=== PATIENT | male | born 1995 | race African-American/Black ===

== ENCOUNTER 2017-03-06 23:44 | Emergency (ER) | payer OTHER ==
[2017-03-06 23:53] VITALS: BP 118/69
[2017-03-07] MEDS ORDERED: NS 0.9% 1000 ML* 1,000 ML IV ONE (01:37)
--- NOTE | 2017-03-07 01:50 | ED ---
I, Oh,Porsche, scribed for Leland Connell MD on 03/07/17 at 0147 . 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 He visited [facility] and has had persistent n/d since his return to the [place] since 3 weeks ago. He took pepto bismol earlier yesterday, and felt better. Abd discomfort however returned soon, and Pt decided to visit ED [facility] when he became concerned with persistent, worsening abd pain. He denies taking any other medication to control his n/d or abd pain since the time of onset 3 weeks ago. PMHx includes IDDM. - History of Current Complaint Chief Complaint: EDNauseaVomitDiarrh Stated Complaint: N/V/D Time Seen by Provider: 03/07/17 01:36 Hx Obtained From: Patient Onset/Duration: Sudden Onset Timing: Constant Pain Intensity: 5 Pain Scale Used: 0-10 Numeric Location: Diffuse Radiates: No Character: Dull Aggravating Factor(s): Nothing Alleviating Factor(s): OTC Analgesics - pepto bismol Associated Signs And Symptoms: Positive: Nausea, Diarrhea. Negative: Fever - Allergies/Home Medications Allergies/Adverse Reactions: Allergies Allergy/AdvReac Type Severity Reaction Status Date / Time No Known Allergies Allergy Verified 03/06/17 23:53 Home Medications: Home Medications NK [No Home Medications Reported] 03/07/17 [History Confirmed 03/07/17] PMH/Surg Hx/FS Hx/Imm Hx Infectious Disease History: No Infectious Disease History: Reports: Traveled Outside the [place] in Last 30 Days - Family History Known Family History: Negative: Cardiac Disease - Social History Occupation: Student - [employer] Alcohol Use: None Hx Substance Use: No Substance Use Type: Reports: None Hx Tobacco Use: No Smoking Status (MU): Never Smoked Tobacco Review of Systems Negative: Fever Positive: Abdominal Pain, Diarrhea, Nausea All Other Systems Reviewed And Are Negative: Yes Physical Exam Triage Information Reviewed: Yes Vital Signs On Initial Exam: Initial Vitals Temp Pulse Resp BP Pulse Ox 97.8 F 86 14 118/69 98 03/06/17 23:46 03/06/17 23:46 03/06/17 23:46 03/06/17 23:46 03/06/17 23:46 Vital Signs Reviewed: Yes Appearance: Positive: Well-Appearing, No Pain Distress, Thin Skin: Positive: Warm Head/Face: Positive: Normal Head/Face Inspection Eyes: Positive: MARILU ENT: Positive: Hearing grossly normal Neck: Positive: Supple Respiratory/Lung Sounds: Positive: Clear to Auscultation, Breath Sounds Present Cardiovascular: Positive: RRR Abdomen Description: Positive: Nontender, Soft Bowel Sounds: Positive: Present Musculoskeletal: Positive: Strength/ROM Intact Neurological: Positive: Sensory/Motor Intact Psychiatric: Positive: Affect/Mood Appropriate - Wanda Coma Scale Coma Scale Total: 15 Diagnostics - Vital Signs Vital Signs Temp Pulse Resp BP Pulse Ox 03/06/17 23:46 97.8 F 86 14 118/69 98 - Laboratory Result Diagrams: 03/07/17 01:50 03/07/17 01:50 Lab Statement: Any lab studies that have been ordered have been reviewed, and results considered in the medical decision making process. Re-Evaluation - Re-Evaluation First Eval Re-Evaluation Time: 02:58 Change: Improved Comment: MD in room to update pt on bloodwork and plan of care. Abdominal Pain Fem Course/Dx - Diagnoses Provider Diagnoses: Diarrhea Discharge - Discharge Plan Condition: Improved Disposition: HOME Patient Education Materials: Acute Diarrhea (ED) Referrals: Belle LOMELI,Gage Hernandez [Medical Doctor] [facility] - The documentation as recorded by the Lambert tovar Soohyun accurately reflects the service I personally performed and the decisions made by me, Leland Connell MD.
[2017-03-07 02:08] LABS: Hematocrit 50 % (42-52); Hemoglobin 17.2 g/dl (14.0-18.0); Mean Corpuscular HGB Conc 34 g/dl (31-36); Mean Corpuscular Hemoglobin 30 pg (27-31); Mean Corpuscular Volume 87 fL (80-94); Mean Platelet Volume 9 um3 (7.4-10.4); Red Blood Count 5.75 10^6/ul (4.0-5.4); Red Cell Distribution Width 13 % (10.5-15); White Blood Count 4.6 10^3/ul (3.5-10.8)
[2017-03-07 02:23] LABS: Albumin 4.3 g/dL (3.2-5.2); BUN/Creatinine Ratio 14.1 (8-20); C Reactive Protein 1.72 mg/L (< 5.00); Calcium 9.3 mg/dL (8.6-10.3); EGFR African American 149.3 (>60); EGFR Non-African American 116.1 (>60); Globulin 3.3 g/dL (2-4); Total Protein 7.6 g/dL (6.4-8.9)
== END 2017-03-07 03:06 | disposition home or self-care (01) ==
LOC: ED 23:44
DX: R19.7 Diarrhea, unspecified (principal); E11.9 Type 2 diabetes mellitus without complications
CPT/HCPCS: 36415; 80053; 83605; 83690; 85025; 86140; 96360; 99282